=== PATIENT | male | born 2000 | race African-American/Black ===

== ENCOUNTER 2024-03-30 16:30 | Outpatient (CLI) | payer BC, OTHER | END 2024-03-30 16:31 | disposition home or self-care (01) | LOC: SCSRAD 16:30 | PROVIDERS: ATTEND Physician Assistant | DX: S99.912A Unspecified injury of left ankle, initial encounter (principal); S99.922A Unspecified injury of left foot, initial encounter; Y92.009 Unspecified place in unspecified non-institutional (private) residence as the place of occurrence of the external cause ==